=== PATIENT | female | born 1995 | race Caucasian/White ===

== ENCOUNTER → 2022-04-23 | Outpatient (CLI) | payer BC, OTHER ==
[2022-04-23 11:55] LABS: HEMATOCRIT 40.4 % (36.0-47.0); HEMOGLOBIN 13.7 g/dl (12.0-15.5); MEAN CORPUSCULAR HEMOGLOBIN 30.6 pg (27.0-33.0); MEAN CORPUSCULAR HGB CONC 33.9 g/dl (32.0-36.5); MEAN CORPUSCULAR VOLUME 90.2 fl (80.0-96.0); PLATELET COUNT, AUTOMATED 268 10^3/uL (150-450); RED BLOOD COUNT 4.48 10^6/uL (4.00-5.40); WHITE BLOOD COUNT 7.7 10^3/uL (4.0-10.0)
[2022-04-23 13:26] LABS: HEPATITIS B SURFACE ANTIGEN NEGATIVE (NEGATIVE); HEPATITIS C VIRUS ABY INDEX < 0.0 INDEX (<0.8); HIV 1&2 SCREEN CENTAUR NEGATIVE (NEGATIVE)
[2022-04-23 13:43] LABS: GC DNA AMPLIFICATION NEGATIVE (NEGATIVE)
== END ==
LOC: M PLALAB 08:31
PROVIDERS: ATTEND Obstetrics & Gynecology
DX: Z34.91 Encounter for supervision of normal pregnancy, unspecified, first trimester (principal)

== ENCOUNTER → 2022-06-17 | Outpatient (CLI) | payer BC, OTHER | LOC: M WHC 13:39 | PROVIDERS: ATTEND Obstetrics & Gynecology | DX: Z34.02 Encounter for supervision of normal first pregnancy, second trimester (principal); Z36.89 Encounter for other specified antenatal screening; Z3A.19 19 weeks gestation of pregnancy ==

== ENCOUNTER → 2022-08-06 | Outpatient (CLI) | payer BC, OTHER ==
[2022-08-06 10:45] LABS: HEMATOCRIT 38.2 % (36.0-47.0); HEMOGLOBIN 12.6 g/dl (12.0-15.5); MEAN CORPUSCULAR HEMOGLOBIN 30.4 pg (27.0-33.0); PLATELET COUNT, AUTOMATED 264 10^3/uL (150-450); RED BLOOD COUNT 4.15 10^6/uL (4.00-5.40); WHITE BLOOD COUNT 11.1 10^3/uL (4.0-10.0)
[2022-08-06 12:42] LABS: GC DNA AMPLIFICATION NEGATIVE (NEGATIVE)
== END ==
LOC: M PLALAB 07:24
PROVIDERS: ATTEND Obstetrics & Gynecology
DX: Z34.80 Encounter for supervision of other normal pregnancy, unspecified trimester (principal); Z3A.00 Weeks of gestation of pregnancy not specified

== ENCOUNTER → 2022-08-06 | Outpatient (CLI) | payer BC, OTHER | LOC: M WHC 06:59 | PROVIDERS: ATTEND Obstetrics & Gynecology | DX: Z34.82 Encounter for supervision of other normal pregnancy, second trimester (principal); Z3A.26 26 weeks gestation of pregnancy ==

== ENCOUNTER → 2022-10-10 | Outpatient (REF) | payer OTHER | LOC: M PLALAB 08:19 | PROVIDERS: ATTEND Obstetrics & Gynecology | DX: Z36.85 Encounter for antenatal screening for Streptococcus B (principal); Z3A.36 36 weeks gestation of pregnancy ==

== ENCOUNTER → 2022-10-16 | Outpatient (CLI) | payer BC, OTHER | LOC: M WHC 07:08 | PROVIDERS: ATTEND Obstetrics & Gynecology | DX: O36.60X0 Maternal care for excessive fetal growth, unspecified trimester, not applicable or unspecified (principal); Z3A.37 37 weeks gestation of pregnancy ==

== ENCOUNTER → 2022-10-25 | Outpatient (REF) | payer OTHER | LOC: M PLALAB 16:07 | PROVIDERS: ATTEND Advanced Practice Midwife | DX: O16.3 Unspecified maternal hypertension, third trimester (principal); Z53.9 Procedure and treatment not carried out, unspecified reason ==

== ENCOUNTER → 2022-10-25 | Outpatient (CLI) | payer OTHER ==
[2022-10-25 17:36] LABS: CREATININE,RANDOM URINE 18.2 MG/DL; TOTAL PROTEIN,RANDOM URINE < 6.0 MG/DL (0.0-14.0)
[2022-10-25 17:39] LABS: HEMATOCRIT 37.3 % (36.0-47.0); HEMOGLOBIN 12.6 g/dl (12.0-15.5); MEAN CORPUSCULAR HEMOGLOBIN 29.9 pg (27.0-33.0); MEAN CORPUSCULAR HGB CONC 33.8 g/dl (32.0-36.5); MEAN CORPUSCULAR VOLUME 88.6 fl (80.0-96.0); PLATELET COUNT, AUTOMATED 271 10^3/uL (150-450); RED BLOOD COUNT 4.21 10^6/uL (4.00-5.40); WHITE BLOOD COUNT 10.2 10^3/uL (4.0-10.0)
[2022-10-25 17:40] LABS: URIC ACID 4.7 MG/DL (3.1-7.8)
[2022-10-25 17:42] LABS: LDH LACTATE DEHYDROGENASE 156 U/L (120-246)
[2022-10-25 17:43] LABS: ALT/SGPT 37 U/L (7.0-40); AST/SGOT 24 U/L (<34); BILIRUBIN,TOTAL 0.6 MG/DL (0.3-1.2); CREATININE FOR GFR 0.57 MG/DL (0.55-1.30); GLOMERULAR FILTRATION RATE > 60.0 (>60)
== END ==
LOC: M LAB 16:44
PROVIDERS: ATTEND Advanced Practice Midwife
DX: O16.3 Unspecified maternal hypertension, third trimester (principal); Z3A.00 Weeks of gestation of pregnancy not specified

== ENCOUNTER 2022-10-31 20:35 | Inpatient (IN) | payer BC, OTHER ==
[~2022-10-31] VITALS: Ht 180.3 cm; Wt 121.6 kg
[2022-10-31] MEDS ORDERED: BENEPOW18 PO (20:45)
[2022-10-31] MEDS ORDERED: PNVTAB4 PO (20:45)
[2022-10-31 20:55] VITALS: BP 136/84
[2022-10-31 21:21] LABS: HEMATOCRIT 37.5 % (36.0-47.0); HEMOGLOBIN 12.9 g/dl (12.0-15.5); MEAN CORPUSCULAR HEMOGLOBIN 29.8 pg (27.0-33.0); MEAN CORPUSCULAR HGB CONC 34.4 g/dl (32.0-36.5); MEAN CORPUSCULAR VOLUME 86.6 fl (80.0-96.0); PLATELET COUNT, AUTOMATED 274 10^3/uL (150-450); RED BLOOD COUNT 4.33 10^6/uL (4.00-5.40); WHITE BLOOD COUNT 12.8 10^3/uL (4.0-10.0)
[2022-10-31] MEDS ORDERED: OXYTOCIN DRIP 30 UNITS in IV 1 EA IV PRN (21:35)
[2022-10-31] MEDS ORDERED: LIDOCAINE 1% MDV 20ML VIAL INFIL PRN (21:35)
[2022-10-31] MEDS: miSOPROStol 50MCG 1/2 TABLET SL SCH (21:46)
[2022-10-31 21:47] VITALS: BP 131/74
[2022-10-31 22:18] VITALS: BP 130/67
[2022-10-31 22:48] VITALS: BP 123/76
[2022-10-31 23:18] VITALS: BP 123/71
[2022-10-31 23:48] VITALS: BP 107/52
[2022-11-01 02:19] VITALS: BP 133/64
[2022-11-01] MEDS: miSOPROStol 50MCG 1/2 TABLET SL SCH ×2 (02:19→09:31)
[2022-11-01 02:50] VITALS: BP 115/66
[2022-11-01 03:22] VITALS: BP 123/60
[2022-11-01 05:20] VITALS: BP 127/68
[2022-11-01 05:50] VITALS: BP 126/81
[2022-11-01] MEDS ORDERED: OXYTOCIN DRIP 30 UNITS in IV 1 EA IV SCH (13:45)
[2022-11-01] MEDS: LR 1,000 ML IV SCH (19:08)
[2022-11-01] MEDS ORDERED: EPIDURAL/PCA KEYS XX PRN (23:50)
[2022-11-01] MEDS ORDERED: LR 500 ML IV PRN (23:50)
[2022-11-01] MEDS ORDERED: ePHEDrine SULFATE 25 MG/5 ML(5MG/ML) SYRINGE IVP PRN (23:50)
[2022-11-01] MEDS ORDERED: ONDANSETRON 4MG 2ML VIAL IV PRN (23:50)
[2022-11-01] MEDS ORDERED: NALOXONE INJ 0.4MG/1ML VIAL IV PRN (23:50)
[2022-11-01] MEDS ORDERED: diphenhydrAMINE 50MG/ML VIAL IV PRN (23:50)
[2022-11-02] VITALS (14 sets, daily range): BP systolic 120–154; BP diastolic 59–91
[2022-11-02] MEDS: LR 1,000 ML IV SCH (00:22)
[2022-11-02] MEDS: FENTANYL/ROPIVACAINE/NACL BAG 100 ML EPIDURAL SCH ×2 (00:22→09:17)
[2022-11-02] MEDS ORDERED: DIBUCAINE 1% OINTMENT 30GM TOP PRN (09:05)
[2022-11-02] MEDS ORDERED: RHOGAM 300MCG (1500IU) INJ IM SCH (09:05)
[2022-11-02] MEDS ORDERED: ANUSOL HC CREAM 30GM TOP PRN (09:05)
[2022-11-02] MEDS ORDERED: ACETAMINOPHEN 500 MG TAB PO PRN (09:05)
[2022-11-02] MEDS ORDERED: MOM 30ML SUSPENSION UDC PO PRN (09:05)
[2022-11-02] MEDS ORDERED: OXYTOCIN DRIP 30 UNITS in IV 1 EA IV SCH (09:45)
[2022-11-02] MEDS: PRENATAL VITAMINS CHEWABLE TABLET PO SCH (10:13)
[2022-11-02] MEDS: FERROUS SULFATE 325MG TAB PO SCH (10:13)
[2022-11-02] MEDS: IBUPROFEN 600MG TAB PO PRN ×2 (10:13→18:00)
[2022-11-02] MEDS: DOCUSATE SODIUM 100MG CAPSULE PO SCH ×2 (10:13→20:57)
[2022-11-02] MEDS ORDERED: OXYTOCIN 30UNITS IN 0.9% NaCl 500ML IV BAG ONE (13:56)
[2022-11-03 05:55] VITALS: BP 129/85
[2022-11-03] MEDS: DOCUSATE SODIUM 100MG CAPSULE PO SCH ×2 (08:05→20:13)
[2022-11-03] MEDS: PRENATAL VITAMINS CHEWABLE TABLET PO SCH (08:05)
[2022-11-03] MEDS: FERROUS SULFATE 325MG TAB PO SCH (08:05)
[2022-11-03] MEDS: IBUPROFEN 600MG TAB PO PRN ×2 (09:31→23:24)
[2022-11-03 18:00] VITALS: BP 133/73
[2022-11-04 06:00] VITALS: BP 133/74
[2022-11-04] MEDS ORDERED: MEASLES,MUMPS,RUBELLA VACCINE INJ (MMR-II) SC.IMMUN ONE (09:00)
[2022-11-04] MEDS: PRENATAL VITAMINS CHEWABLE TABLET PO SCH (10:33)
[2022-11-04] MEDS: FERROUS SULFATE 325MG TAB PO SCH (10:33)
[2022-11-04] MEDS: DOCUSATE SODIUM 100MG CAPSULE PO SCH (10:34)
[2022-11-04] MEDS: IBUPROFEN 600MG TAB PO PRN (10:34)
[2022-11-05] MEDS ORDERED: PROBCAP2 PO (16:36)
== END 2022-11-04 13:16 | disposition home or self-care (01) | DRG 560 ==
LOC: M LDO 20:35 → M LDI 21:27 → M OBS 11-02 11:25
PROVIDERS: ADMIT Specialist; ATTEND Specialist
PROC: 3E033VJ Introduction of Other Hormone into Peripheral Vein, Percutaneous Approach (ICD-10-PCS; 2022-10-31)
PROC: 10E0XZZ Delivery of Products of Conception, External Approach (ICD-10-PCS; principal; 2022-11-02)
PROC: 0KQM0ZZ Repair Perineum Muscle, Open Approach (ICD-10-PCS; 2022-11-02)
DX: O13.4 Gestational [pregnancy-induced] hypertension without significant proteinuria, complicating childbirth (principal); O70.1 Second degree perineal laceration during delivery; Z37.0 Single live birth; Z3A.39 39 weeks gestation of pregnancy; Z88.2 Allergy status to sulfonamides

== ENCOUNTER 2022-11-05 13:30 | Inpatient (IN) | payer BC, OTHER ==
[~2022-11-05] VITALS: Ht 180.3 cm; Wt 117.0 kg
[~2022-11-05 13:30] MED LIST: BENEPOW18 PO; PNVTAB4 PO
[2022-11-05] MEDS ORDERED: ONDANSETRON 4MG 2ML VIAL IV PRN (16:00)
[2022-11-05 16:31] VITALS: BP 141/79
[2022-11-05] MEDS ORDERED: PROBCAP2 PO (16:36)
[2022-11-05] MEDS ORDERED: HOME MED LIST COMPLETE! XX SCH (16:40)
[2022-11-05] MEDS: IBUPROFEN 800 MG TAB PO SCH ×2 (17:03→21:07)
[2022-11-05 17:24] LABS: ALBUMIN 2.7 G/DL (3.2-5.2); ALKALINE PHOSPHATASE 203 U/L (46-116); ALT/SGPT 61 U/L (7.0-40); AST/SGOT 40 U/L (<34); BILIRUBIN,TOTAL 0.6 MG/DL (0.3-1.2); BLOOD UREA NITROGEN 12 MG/DL (9-23); CALCIUM LEVEL 9.5 MG/DL (8.5-10.1); CARBON DIOXIDE LEVEL 22 MMOL/L (20-31); CHLORIDE LEVEL 102 MMOL/L (98-107); CREATININE FOR GFR 0.69 MG/DL (0.55-1.30); GLOMERULAR FILTRATION RATE > 60.0 (>60); GLUCOSE, FASTING 94 MG/DL (60-100); POTASSIUM SERUM 3.9 MMOL/L (3.5-5.1); SODIUM LEVEL 134 MMOL/L (136-145); TOTAL PROTEIN 6.1 G/DL (5.7-8.2)
[2022-11-05 17:35] LABS: ERYTHROCYTE SEDIMENTATION RATE 12 mm/hr (0-20)
[2022-11-05] MEDS: LR 1,000 ML IV SCH (18:06)
[2022-11-05] MEDS: AMPICILLIN SOD/SULBACTAM SOD 3 GM in D5W MINI-BAG PLUS 100 ML IV SCH ×2 (18:18→23:57)
[2022-11-05 18:59] LABS: INFLUENZA A AMPLIFICATION NEGATIVE (NEGATIVE); INFLUENZA B AMPLIFICATION NEGATIVE (NEGATIVE)
[2022-11-05 19:24] LABS: APPEARANCE, URINE CLEAR (CLEAR); BACTERIA, URINE AUTO NEGATIVE (NEGATIVE); BILIRUBIN, URINE AUTO NEGATIVE (NEGATIVE); BLOOD, URINE BLOOD 3+ (NEGATIVE); COLOR, URINE YELLOW (YELLOW); GLUCOSE, URINE (UA) AUTO NEGATIVE (NEGATIVE); KETONE, URINE AUTO NEGATIVE (NEGATIVE); LEUKOCYTE ESTERASE, URINE AUTO 2+ (NEGATIVE); NITRITE, URINE AUTO NEGATIVE (NEGATIVE); PROTEIN, URINE AUTO NEGATIVE (NEGATIVE); RBC, URINE AUTO 14 /HPF (0-3); SPECIFIC GRAVITY URINE AUTO 1.008 (1.002-1.035); SQUAMOUS EPITHELIAL CELL UR AU 1 /HPF (0-6); UROBILINOGEN, URINE AUTO 0.2 mg/dL (0.0-2.0); WBC, URINE AUTO 32 /HPF (0-3)
[2022-11-05 20:00] VITALS: BP 127/65
[2022-11-05 20:13] LABS: GC DNA AMPLIFICATION NEGATIVE (NEGATIVE)
[2022-11-05] MEDS: DOCUSATE SODIUM 100MG CAPSULE PO SCH (21:07)
[2022-11-05 21:23] LABS: HEMATOCRIT 31.7 % (36.0-47.0); HEMOGLOBIN 10.8 g/dl (12.0-15.5); MEAN CORPUSCULAR HEMOGLOBIN 30.1 pg (27.0-33.0); MEAN CORPUSCULAR HGB CONC 34.1 g/dl (32.0-36.5); MEAN CORPUSCULAR VOLUME 88.3 fl (80.0-96.0); PLATELET COUNT, AUTOMATED 282 10^3/uL (150-450); RED BLOOD COUNT 3.59 10^6/uL (4.00-5.40); WHITE BLOOD COUNT 9.3 10^3/uL (4.0-10.0)
[2022-11-06] VITALS (7 sets, daily range): BP systolic 118–139; BP diastolic 56–82
[2022-11-06] MEDS: LR 1,000 ML IV SCH ×3 (02:57→21:36)
[2022-11-06] MEDS: IBUPROFEN 800 MG TAB PO SCH ×3 (05:27→21:36)
[2022-11-06] MEDS: AMPICILLIN SOD/SULBACTAM SOD 3 GM in D5W MINI-BAG PLUS 100 ML IV SCH ×3 (05:27→17:38)
[2022-11-06 07:35] LABS: BASO % 0.2 % (0.0-1.0); EOS # 0.1 10^3/uL (0.0-0.5); EOS % 1.3 % (0.0-3.0); HEMATOCRIT 28.9 % (36.0-47.0); HEMOGLOBIN 9.8 g/dl (12.0-15.5); LYMPH # 1.4 10^3/uL (1.5-5.0); LYMPH % 30.8 % (24.0-44.0); MEAN CORPUSCULAR HEMOGLOBIN 30.1 pg (27.0-33.0); MEAN CORPUSCULAR HGB CONC 33.9 g/dl (32.0-36.5); MEAN CORPUSCULAR VOLUME 88.7 fl (80.0-96.0); MONO # 0.5 10^3/uL (0.0-0.8); MONO % 10.7 % (2.0-8.0); NEUTROPHILS # 2.6 10^3/uL (1.5-8.5); NEUTROPHILS % 55.9 % (36.0-66.0); PLATELET COUNT, AUTOMATED 226 10^3/uL (150-450); RED BLOOD COUNT 3.26 10^6/uL (4.00-5.40); WHITE BLOOD COUNT 4.7 10^3/uL (4.0-10.0)
[2022-11-06] MEDS: DOCUSATE SODIUM 100MG CAPSULE PO SCH ×2 (08:20→21:35)
[2022-11-07] VITALS: BP 121/64
[2022-11-07] MEDS: AMPICILLIN SOD/SULBACTAM SOD 3 GM in D5W MINI-BAG PLUS 100 ML IV SCH ×3 (00:23→11:03)
[2022-11-07 04:00] VITALS: BP 129/85
[2022-11-07] MEDS: IBUPROFEN 800 MG TAB PO SCH (06:06)
[2022-11-07] MEDS: LR 1,000 ML IV SCH (06:06)
[2022-11-07 08:00] VITALS: BP 138/79
[2022-11-07] MEDS: DOCUSATE SODIUM 100MG CAPSULE PO SCH (09:04)
== END 2022-11-07 12:25 | disposition home or self-care (01) | DRG 561 ==
LOC: M PED 16:00
PROVIDERS: ADMIT Obstetrics & Gynecology; ATTEND Obstetrics & Gynecology
DX: O86.12 Endometritis following delivery (principal); Z88.2 Allergy status to sulfonamides

== ENCOUNTER → 2023-04-22 | Outpatient (REF) | payer BC, OTHER ==
[~2023-04-22] MED LIST changes: +PROBCAP2 PO
== END ==
LOC: M SFHCWAGY 12:57
PROVIDERS: ATTEND Nurse Practitioner Family
DX: Z12.4 Encounter for screening for malignant neoplasm of cervix (principal)

== ENCOUNTER → 2023-05-13 | Outpatient (REF) | payer OTHER, BC | LOC: M SFHCDERM 14:25 | PROVIDERS: ATTEND Physician Assistant | DX: L92.9 Granulomatous disorder of the skin and subcutaneous tissue, unspecified (principal); D18.01 Hemangioma of skin and subcutaneous tissue ==

== ENCOUNTER → 2023-08-06 | Outpatient (REF) | payer BC, OTHER | LOC: M SFHCDERM 17:36 | PROVIDERS: ATTEND Dermatology | DX: L98.0 Pyogenic granuloma (principal) ==

== ENCOUNTER → 2024-03-22 | Outpatient (REF) | LOC: M EMP 07:42 | PROVIDERS: ATTEND Family Medicine | DX: Z11.52 Encounter for screening for COVID-19 (principal) ==

== ENCOUNTER → 2024-03-22 | Outpatient (REF) | LOC: M EMP 07:44 | PROVIDERS: ATTEND Family Medicine | DX: Z11.52 Encounter for screening for COVID-19 (principal) ==

== ENCOUNTER → 2024-11-02 | Outpatient (CLI) | payer BC, OTHER ==
[2024-11-02 17:05] LABS: HEMATOCRIT 40.2 % (36.0-47.0); HEMOGLOBIN 13.6 g/dl (12.0-15.5); MEAN CORPUSCULAR HEMOGLOBIN 29.9 pg (27.0-33.0); MEAN CORPUSCULAR HGB CONC 33.8 g/dl (32.0-36.5); MEAN CORPUSCULAR VOLUME 88.4 fl (80.0-96.0); PLATELET COUNT, AUTOMATED 243 10^3/uL (150-450); RED BLOOD COUNT 4.55 10^6/uL (4.00-5.40); WHITE BLOOD COUNT 9.5 10^3/uL (4.0-10.0)
[2024-11-02 18:03] LABS: HIV 1&2 SCREEN NEGATIVE (NEGATIVE)
[2024-11-02 18:11] LABS: HEPATITIS C VIRUS ABY INDEX 0.11 INDEX (<0.8)
[2024-11-02 18:25] LABS: Trichomonas vaginalis (AMP) NOT DETECTED (NEGATIVE)
[2024-11-02 18:49] LABS: GC DNA AMPLIFICATION NEGATIVE (NEGATIVE)
== END ==
LOC: M PLALAB 14:28
PROVIDERS: ATTEND Advanced Practice Midwife
DX: Z34.81 Encounter for supervision of other normal pregnancy, first trimester (principal)

== ENCOUNTER 2025-02-24 23:57 | Emergency (ER) | payer BC ==
[~2025-02-24] VITALS: Ht 180.3 cm; Wt 111.4 kg
[2025-02-25 00:46] LABS: BASO # 0.0 10^3/uL (0.0-0.2); BASO % 0.2 % (0.0-1.0); EOS # 0.1 10^3/uL (0.0-0.5); EOS % 1.1 % (0.0-3.0); LYMPH # 5.0 10^3/uL (1.5-5.0); LYMPH % 37.9 % (24.0-44.0); MONO # 1.0 10^3/uL (0.0-0.8); MONO % 7.8 % (2.0-8.0); NEUTROPHILS # 6.9 10^3/uL (1.5-8.5); NEUTROPHILS % 52.8 % (36.0-66.0); PLATELET COUNT, AUTOMATED 242 10^3/uL (150-450)
[2025-02-25 01:10] LABS: ALT/SGPT 48 U/L (7.0-40); AST/SGOT 23 U/L (<34); CALCIUM LEVEL 9.7 MG/DL (8.5-10.1); CARBON DIOXIDE LEVEL 21 MMOL/L (20-31); CHLORIDE LEVEL 106 MMOL/L (98-107); CREATININE FOR GFR 0.80 MG/DL (0.55-1.30); GLOMERULAR FILTRATION RATE > 90.0 (>60); POTASSIUM SERUM 3.7 MMOL/L (3.5-5.1); SODIUM LEVEL 139 MMOL/L (136-145)
[2025-02-25] MEDS ORDERED: LEVS0.124 SL (06:23)
[2025-02-25] MEDS ORDERED: ONDA-282 PO (06:23)
[2025-02-25 06:36] VITALS: BP 128/58; TEMP 97.5; O2SAT 100
== END 2025-02-25 06:38 | disposition home or self-care (01) ==
LOC: M ED 23:57
DX: K80.20 Calculus of gallbladder without cholecystitis without obstruction (principal); Z88.2 Allergy status to sulfonamides; Z79.899 Other long term (current) drug therapy

== ENCOUNTER → 2025-03-24 | Outpatient (CLI) | payer BC ==
[~2025-03-24] MED LIST changes: +LEVS0.124 SL; +ONDA-282 PO
[2025-03-24 17:43] LABS: PLATELET COUNT, AUTOMATED 251 10^3/uL (150-450)
[2025-03-24 18:46] LABS: HIV 1&2 SCREEN NEGATIVE (NEGATIVE)
[2025-03-24 18:54] LABS: HEPATITIS C VIRUS ABY INDEX < 0.02 INDEX (<0.8)
[2025-03-24 22:27] LABS: Trichomonas vaginalis (AMP) NOT DETECTED (NEGATIVE)
[2025-03-24 22:50] LABS: GC DNA AMPLIFICATION NEGATIVE (NEGATIVE)
== END ==
LOC: M PLALAB 15:02
PROVIDERS: ATTEND Advanced Practice Midwife
DX: Z34.81 Encounter for supervision of other normal pregnancy, first trimester (principal); Z82.79 Family history of other congenital malformations, deformations and chromosomal abnormalities

== ENCOUNTER 2025-04-24 02:03 | Emergency (ER) | payer BC ==
[~2025-04-24] VITALS: Ht 180.3 cm; Wt 109.0 kg
[2025-04-24 06:32] LABS: BASO # 0.0 10^3/uL (0.0-0.2); BASO % 0.2 % (0.0-1.0); EOS # 0.1 10^3/uL (0.0-0.5); EOS % 0.5 % (0.0-3.0); LYMPH # 2.2 10^3/uL (1.5-5.0); LYMPH % 22.9 % (24.0-44.0); MONO # 0.6 10^3/uL (0.0-0.8); MONO % 6.2 % (2.0-8.0); NEUTROPHILS # 6.7 10^3/uL (1.5-8.5); NEUTROPHILS % 69.7 % (36.0-66.0); PLATELET COUNT, AUTOMATED 252 10^3/uL (150-450)
[2025-04-24 06:53] LABS: CALCIUM LEVEL 10.0 MG/DL (8.5-10.1); CARBON DIOXIDE LEVEL 24 MMOL/L (20-31); CHLORIDE LEVEL 105 MMOL/L (98-107); CREATININE FOR GFR 0.64 MG/DL (0.55-1.30); GLOMERULAR FILTRATION RATE > 90.0 (>60); POTASSIUM SERUM 4.1 MMOL/L (3.5-5.1); SODIUM LEVEL 139 MMOL/L (136-145)
[2025-04-24 07:09] LABS: HCG, SERUM QUANTITATIVE 45677.0 MIU/ML (<4.2)
[2025-04-24 07:26] VITALS: BP 130/83; TEMP 97.4; O2SAT 97
[2025-04-24 07:37] LABS: KETONE, URINE AUTO RFX NEGATIVE (NEGATIVE); LEUKOCYTE ESTERASE UR AUTO RFX NEGATIVE (NEGATIVE); MUCUS, URINE RFX SMALL (NEGATIVE); NITRITE, URINE AUTO RFX NEGATIVE (NEGATIVE); RBC, URINE AUTO RFX TNTC /HPF (0-3); SQUAM EPITHELIAL CELL UR AURFX 0 /HPF (0-6); WBC, URINE AUTO RFX 1 /HPF (0-3)
== END 2025-04-24 07:35 | disposition home or self-care (01) ==
LOC: M ED 02:03
DX: O20.8 Other hemorrhage in early pregnancy (principal); Z3A.15 15 weeks gestation of pregnancy; Z88.2 Allergy status to sulfonamides; Z79.899 Other long term (current) drug therapy

== ENCOUNTER → 2025-05-26 | Outpatient (CLI) | payer BC | LOC: M WHC 14:43 | PROVIDERS: ATTEND Advanced Practice Midwife | DX: Z34.82 Encounter for supervision of other normal pregnancy, second trimester (principal); Z3A.19 19 weeks gestation of pregnancy ==

== ENCOUNTER → 2025-06-16 | Outpatient (REF) | payer BC | LOC: M PLALAB 13:23 | PROVIDERS: ATTEND Student in an Organized Health Care Education/Training Program | DX: Z34.80 Encounter for supervision of other normal pregnancy, unspecified trimester (principal) ==

== ENCOUNTER → 2025-06-23 | Outpatient (REF) | LOC: M EMP 15:44 | PROVIDERS: ATTEND Family Medicine | DX: Z01.89 Encounter for other specified special examinations (principal) ==